=== PATIENT | female | born 1950 | race Two or more races ===

== ENCOUNTER 2022-02-27 18:08 | Emergency (ER) | payer MEDICARE, SELFPAY ==
--- NOTE | ~2022-02-27 | XR_ITS ---
EXAMINATION: XR CHEST CLINICAL INFORMATION: Upper respiratory infection COMPARISON: None TECHNIQUE: Frontal view of the chest was obtained. FINDINGS: No significant acute abnormality is noted involving the heart, lungs, mediastinum, bony thorax or soft tissues. Patient status post median sternotomy. Calcification present in the right supraspinatus tendon. Mild degenerative changes in the spine. XR/XR chest 1V IMPRESSION: No acute intrathoracic disease. Calcific tendinitis right shoulder.
[2022-02-27 18:21] VITALS: BP 144/72; PULSE 90; O2SAT 97
--- NOTE | 2022-02-27 18:40 | ED.GENADULT ---
HPI - General Adult General Chief complaint: Upper Respiratory Symptoms Stated complaint: FLU LIKE SX,FLU @ [facility] PER EMS Time Seen by Provider: 02/27/22 18:15 Related Data Allergies Allergy/AdvReac Type Severity Reaction Status Date / Time No Known Allergies Allergy Verified 02/27/22 18:47 [facility] Social History Social History Advance Directives: No Physical Exam ED Vital Signs: BMI result Body Mass Index 33.4 Course Reevaluation(s) Reevaluation #1: RME 71 year old female hx of CAD present with bloody diarrhea, dry cough, malaise, fatigue, weakness, subjective fevers and chills X2 days. Family members at home flu + . Denies chest pain, shortness of breath, headache, vision changes, dizziness. PE w/ gobal weakness, rest of exam benign Plan: flu/covid/rsv Time: 18:43 Reevaluation #2: I did a rapid medical exam on this patient I was not the primary provider, patient was evaluated by provider by Idalmis Duncan PHOTOVOLTAIC INSTALLATION TECHNICIAN on 02/27/22, please refer to that providers full chart Medications Administered Discontinued Medications Generic Name Dose Route Start Last Admin Trade Name Freq PRN Reason Stop Dose Admin Sodium Chloride 1,000 mls @ 999 mls/hr 02/27/22 21:00 02/27/22 23:35 Ns IVCONT 02/27/22 22:00 Infused .Q1H1M [facility]PER Infusion Ibuprofen 600 mg 02/27/22 20:52 02/27/22 21:11 Ibuprofen 600 Mg Tablet PO 02/27/22 20:53 600 mg ONCE ONE Administration Medical Decision Making Lab Data 02/27/22 19:59 02/27/22 19:59 Labs: Lab Results 02/27/22 02/27/22 02/27/22 Range/Units 18:45 19:59 19:59 WBC 4.2 L (4.8-10.8) X10*3/uL RBC 4.19 L (4.20-5.50) X10*6/uL Hgb 13.5 (12.0-16.0) g/dl Hct 38.9 (37.0-47.0) % MCV 92.8 (80.0-98.0) fL MCH 32.2 (27.0-33.0) pg MCHC 34.7 (31.0-35.0) g/dl RDW 11.8 (11.0-16.0) % Plt Count 105 L (160-400) X10*3/uL MPV 11.7 (9.4-12.3) fL Immature Gran % (Auto) 0.2 (0.0-0.4) % Neut % (Auto) 60.5 (45-73) % Lymph % (Auto) 24.6 (20-40) % [place] % (Auto) 14.5 H (2-11) % Eos % (Auto) 0.0 (0-4) % Baso % (Auto) 0.2 (0-2) % Lymph # (Auto) 1.0 L (1.2-4.9) X10*3/uL [place] # (Auto) 0.6 (0.1-1.2) X10*3/uL Eos # (Auto) 0.0 (0.0-0.4) X10*3/uL Baso # (Auto) 0.0 (0.0-0.2) X10*3/uL Abs Immat Gran (auto) 0.01 (0.00-0.03) X10*3/uL Absolute Neuts (auto) 2.5 (2.0-8.3) x10*3/uL Absolute Nucleated RBC 0.000 (0.0-0.012) X10*3/uL Nucleated RBC % (auto) 0.0 (0.0-0.2) /100WBC Sodium 133 L (135-145) mmol/L Potassium 3.7 (3.3-5.1) mmol/L Chloride 97 (96-108) mmol/L Carbon Dioxide 24 (22-29) mmol/L Anion Gap 16 (12-20) BUN 23 H (9-16) mg/dL Creatinine 0.88 (0.5-1.4) mg/dL Estim Creat Clear Calc 48.1 Estimated GFR > 60 Random Glucose 101 (60-115) mg/dL Calcium 8.8 (8.4-10.2) mg/dL Total Bilirubin 0.5 (0.0-1.0) mg/dL AST 64 H (5-31) U/L ALT 47 H (0-31) U/L Alkaline Phosphatase 59 (39-117) U/L Total Protein 6.4 L (6.5-8.0) g/dL Albumin 3.8 (3.5-5.0) g/dL Influenza Type A (PCR) POSITIVE A (Negative) Influenza Type B (PCR) NEGATIVE (Negative) RSV RNA Qual (PCR) NEGATIVE (Negative) SARS-CoV-2 RNA (RT-PCR) NEGATIVE (Negative) Discharge Plan Discharge Clinical Impression: Influenza, Acute dehydration Patient Disposition: Home, Self-Care Instructions: Dehydration (ED), Influenza (ED) Additional Instructions: You were evaluated for upper respiratory symptoms. You tested positive for influenza A. We gave you a IV fluid for dehydration. Please drink fluids. Take Tylenol 650 mg every 6 hours to help reduce pain and fevers. Follow-up with primary care physician this week. Thank you for choosing this emergency department for evaluation. Please follow-up with primary care physician as needed. Return to the emergency department for any new, concerning, or worsening symptoms. Interventions: ED Discharge Assessment Last Done: 02/27/22 23:43 Discharge Date/Time: 02/27/22 23:45
[2022-02-27 18:41] VITALS: BP 138/71; PULSE 86; RESP 18; TEMP 37.8; O2SAT 96; BMI 33.4
--- NOTE | 2022-02-27 18:57 | ED_ITS ---
HPI - URI/Sore Throat General Chief Complaint: Upper Respiratory Symptoms Stated Complaint: FLU LIKE SX,FLU @ [facility] PER EMS Time Seen by Provider: 02/27/22 18:15 Source: patient Mode of arrival: ambulatory Limitations: language barrier History of Present Illness HPI Narrative: 71-year-old female presents with flu-like symptoms, cough, nasal congestion, diarrhea, myalgia and has had positive influenza contacts. Patient does not report any chest pain, shortness of breath, abdominal distention, vomiting, dizz iness or weakness. She has not taken any medication [id number] to help alleviate her symptoms. MD elicited complaint: fever, cough and nasal congestion Onset (ago): day(s) (2) Consistency: constant and progressively worsening Severity: moderate Pain scale (0-10): 5 Description of mucous: clear and watery Able to tolerate fluids by mouth: Yes Exacerbating factors: exertion Relieving factors: rest Context: sick contacts Associated symptoms: fever, chills, myalgias, headache, nasal congestion, cough and diarrhea Treatments prior to arrival: none Related Data Allergies Allergy/AdvReac Type Severity Reaction Status Date / Time No Known Allergies Allergy Verified 02/27/22 18:47 Review of Systems Review of Systems: Constitutional: positive Fever, positive Chills, positive fatigue, positive Malaise ENT/Mouth: No sore throat, positive runny nose Eyes: No Discharge Cardiovascular: No Chest Pain, No SOB Respiratory: Positive Cough, No Sputum, No Wheezing, No Smoke Exposure, No Dyspnea Gastrointestinal: No Nausea, No Vomiting, positive Diarrhea Genitourinary: no irregular bleeding, No Dysuria, No Urinary Frequency, No Hematuria, No Urinary Incontinence, No Urgency, No Flank Pain, Musculoskeletal: positive Myalgia Skin: No rash Neuro: No Headache Yes all other systems are reviewed and are negative [facility] Past Medical History Attestation statement: The following information was validated with the patient. Source: old records reviewed Social History Social History Advance Directives: No Advance Directives Information Provided: No Physical Exam Vital Signs: Vital Signs: Last Vital Signs Temp 99.8 F 02/27/22 22:42 Pulse 77 02/27/22 22:42 Resp 18 02/27/22 18:41 BP 142/61 H 02/27/22 22:42 Pulse Ox 93 11/28/22 22:42 O2 Del Method 02/27/22 22:42 BMI result Body Mass Index 33.4 Appearance: Alert. Oriented X3. Appears fatigued. Eyes: Pupils equal, round and reactive to light. ENT: Pharynx normal. Neck: Normal inspection. Neck supple. CVS: Normal heart rate and rhythm. Pulses normal. Respiratory: No respiratory distress. Breath sounds normal. Abdomen: Soft and nontender. Skin: Skin warm and dry. Normal skin color. Normal skin turgor. Extremities: No lower extremity edema. Gait well-balanced well coordinated Neuro: No motor deficit. No sensory deficit. Cranial nerves 2-12 intact Course Course Course Narrative: 71-year-old female presents with flu-like symptoms. Has had multiple influenza contacts. Patient's labs were drawn while patient was in the emergency department waiting room, tested positive for influenza A. 20:50 BUN elevated at 23. No prior value for baseline. Indicative of mild dehydration, will order 1 L normal saline. Patient patient family verbalized understanding of supportive measures for influenza. Verbalized understanding of signs symptoms indicating need for emergent intervention. deliverer pharmacy utilized for all correspondence. Google translate utilized for discharge instructions. Medications Administered Discontinued Medications Generic Name Dose Route Start Last Admin Trade Name Freq PRN Reason Stop Dose Admin Sodium Chloride 1,000 mls @ 999 mls/hr 02/27/22 21:00 02/27/22 23:35 Ns IVCONT 02/27/22 22:00 Infused .Q1H1M [facility] Infusion Ibuprofen 600 mg 02/27/22 20:52 02/27/22 21:11 Ibuprofen 600 Mg Tablet PO 02/27/22 20:53 600 mg ONCE ONE Administration MDM - URI/Sore Throat Differential Diagnosis Differential diagnosis: Likely upper respiratory infection, viral infection, influenza and pharyngitis Medical Records Attestation: I reviewed the patient's medical records. Lab Data Attestation: I reviewed the patient's lab results. Result diagrams: 02/27/22 19:59 02/27/22 19:59 Labs: Lab Results 02/27/22 02/27/22 02/27/22 Range/Units 18:45 19:59 19:59 WBC 4.2 L (4.8-10.8) X10*3/uL RBC 4.19 L (4.20-5.50) X10*6/uL Hgb 13.5 (12.0-16.0) g/dl Hct 38.9 (37.0-47.0) % MCV 92.8 (80.0-98.0) fL MCH 32.2 (27.0-33.0) pg MCHC 34.7 (31.0-35.0) g/dl RDW 11.8 (11.0-16.0) % Plt Count 105 L (160-400) X10*3/uL MPV 11.7 (9.4-12.3) fL Immature Gran % (Auto) 0.2 (0.0-0.4) % Neut % (Auto) 60.5 (45-73) % Lymph % (Auto) 24.6 (20-40) % [place] % (Auto) 14.5 H (2-11) % Eos % (Auto) 0.0 (0-4) % Baso % (Auto) 0.2 (0-2) % Lymph # (Auto) 1.0 L (1.2-4.9) X10*3/uL [place] # (Auto) 0.6 (0.1-1.2) X10*3/uL Eos # (Auto) 0.0 (0.0-0.4) X10*3/uL Baso # (Auto) 0.0 (0.0-0.2) X10*3/uL Abs Immat Gran (auto) 0.01 (0.00-0.03) X10*3/uL Absolute Neuts (auto) 2.5 (2.0-8.3) x10*3/uL Absolute Nucleated RBC 0.000 (0.0-0.012) X10*3/uL Nucleated RBC % (auto) 0.0 (0.0-0.2) /100WBC Sodium 133 L (135-145) mmol/L Potassium 3.7 (3.3-5.1) mmol/L Chloride 97 (96-108) mmol/L Carbon Dioxide 24 (22-29) mmol/L Anion Gap 16 (12-20) BUN 23 H (9-16) mg/dL Creatinine 0.88 (0.5-1.4) mg/dL Estim Creat Clear Calc 48.1 Estimated GFR > 60 Random Glucose 101 (60-115) mg/dL Calcium 8.8 (8.4-10.2) mg/dL Total Bilirubin 0.5 (0.0-1.0) mg/dL AST 64 H (5-31) U/L ALT 47 H (0-31) U/L Alkaline Phosphatase 59 (39-117) U/L Total Protein 6.4 L (6.5-8.0) g/dL Albumin 3.8 (3.5-5.0) g/dL Influenza Type A (PCR) POSITIVE A (Negative) Influenza Type B (PCR) NEGATIVE (Negative) RSV RNA Qual (PCR) NEGATIVE (Negative) SARS-CoV-2 RNA (RT-PCR) NEGATIVE (Negative) Imaging Data Chest x-ray: Attestation: I personally reviewed and interpreted this imaging study as follows: Radiologist's impression: EXAMINATION: XR CHEST CLINICAL INFORMATION: Upper respiratory infection COMPARISON: None TECHNIQUE: Frontal view of the chest was obtained. FINDINGS: No significant acute abnormality is noted involving the heart, lungs, mediastinum, bony thorax or soft tissues. Patient status post median sternotomy. Calcification present in the right supraspinatus tendon. Mild degenerative changes in the spine. XR/XR chest 1V IMPRESSION: No acute intrathoracic disease. Calcific tendinitis right shoulder. Discharge Plan Discharge Clinical Impression: Influenza, Acute dehydration Patient Disposition: Home, Self-Care Instructions: Dehydration (ED), Influenza (ED) Additional Instructions: You were evaluated for upper respiratory symptoms. You tested positive for influenza A. We gave you a IV fluid for dehydration. Please drink fluids. Take Tylenol 650 mg every 6 hours to help reduce pain and fevers. Follow-up with primary care physician this week. Thank you for choosing this emergency department for evaluation. Please follow-up with primary care physician as needed. Return to the emergency department for any new, concerning, or worsening symptoms. Interventions: ED Discharge Assessment Last Done: 02/27/22 23:43 Discharge Date/Time: 02/27/22 23:45
[2022-02-27 19:36] LABS: Influenza A PCR POSITIVE (Negative); Influenza B PCR NEGATIVE (Negative); Resp Syncy Virus RNA Qual PCR NEGATIVE (Negative); SARS COV2 PCR INHOUSE NEGATIVE (Negative)
[2022-02-27 20:05] LABS: Basophils Percent Auto 0.2 % (0-2); PLT CLUMP 1; Red Cell Distribution Width 11.8 % (11.0-16.0); SCAN SMEAR FLAG 1
[2022-02-27 20:07] LABS: Hematocrit 38.9 % (37.0-47.0); Hemoglobin 13.5 g/dl (12.0-16.0); Imm Gran Abs Auto 0.01 X10*3/uL (0.00-0.03); Imm Gran Pct Auto 0.2 % (0.0-0.4); Lymphocytes Percent Auto 24.6 % (20-40); Mean Corpuscular HGB Conc 34.7 g/dl (31.0-35.0); Mean Corpuscular Hemoglobin 32.2 pg (27.0-33.0); Mean Corpuscular Volume 92.8 fL (80.0-98.0); Mean Platelet Volume 11.7 fL (9.4-12.3); Monocytes Absolute Auto 0.6 X10*3/uL (0.1-1.2); Monocytes Percent Auto 14.5 % (2-11); Neutrophils Absolute Auto 2.5 x10*3/uL (2.0-8.3); Neutrophils Percent Auto 60.5 % (45-73); Red Blood Count 4.19 X10*6/uL (4.20-5.50)
[2022-02-27 20:16] LABS: MANUAL DIFF FLAG NO; Platelet Count 105 X10*3/uL (160-400); White Blood Count 4.2 X10*3/uL (4.8-10.8)
[2022-02-27 20:26] LABS: Alanine Aminotransferase 47 U/L (0-31); Albumin Level 3.8 g/dL (3.5-5.0); Alkaline Phosphatase 59 U/L (39-117); Anion Gap 16 (12-20); Aspartate Amino Transferase 64 U/L (5-31); Bilirubin Total 0.5 mg/dL (0.0-1.0); Blood Urea Nitrogen 23 mg/dL (9-16); Calcium 8.8 mg/dL (8.4-10.2); Carbon Dioxide 24 mmol/L (22-29); Chloride 97 mmol/L (96-108); Creatinine Clr Calc Pharmacy 48.1; Estimated Glomerular Filt Rate > 60; Glucose Random 101 mg/dL (60-115); Potassium 3.7 mmol/L (3.3-5.1); Sodium 133 mmol/L (135-145); Total Protein 6.4 g/dL (6.5-8.0)
[2022-02-27] MEDS: Ibuprofen 600 MG TABLET PO (21:11)
[2022-02-27] MEDS: 0.9 % Sodium Chloride 1,000 ML 999 ML IVCONT (21:12)
[2022-02-27 22:42] VITALS: BP 142/61; PULSE 77; TEMP 37.7; O2SAT 93
== END 2022-02-27 23:45 | disposition home or self-care (01) ==
PROVIDERS: Physician Assistant; Emergency Provider Internal Medicine
DX: J11.1 Influenza due to unidentified influenza virus with other respiratory manifestations (principal); R50.9 Fever, unspecified; E86.0 Dehydration; Z20.822 Contact with and (suspected) exposure to COVID-19
CPT/HCPCS: 0241U; 36415; 71045; 80053; 85025; 96360; 96361; 99284

== ENCOUNTER 2022-03-01 23:59 | Emergency (ER) | payer OTHER, SELFPAY ==
--- NOTE | 2022-03-02 | ECG_ITS ---
Test Reason : Dizziness Blood Pressure : / mmHG Vent. Rate : 072 BPM Atrial Rate : 072 BPM P-R Int : 138 ms QRS Dur : 112 ms QT Int : 440 ms P-R-T Axes : 068 041 043 degrees QTc Int : 481 ms Normal sinus rhythm Incomplete right bundle branch block Nonspecific T wave abnormality Prolonged QT Abnormal ECG No previous ECGs available Referred By: Generic ED Physician Electronically Signed By:Jimmy Decker
[2022-03-02 00:03] VITALS: BP 145/76; PULSE 88; O2SAT 97
[2022-03-02 00:28] VITALS: BP 115/53; PULSE 74; RESP 16; TEMP 36.6; O2SAT 95; BMI 50.0
[2022-03-02 01:47] LABS: MANUAL DIFF FLAG NO
[2022-03-02 01:50] LABS: Eosinophils Absolute Auto 0.1 X10*3/uL (0.0-0.4); Eosinophils Percent Auto 1.2 % (0-4); Hematocrit 36.2 % (37.0-47.0); Hemoglobin 12.3 g/dl (12.0-16.0); Imm Gran Abs Auto 0.01 X10*3/uL (0.00-0.03); Imm Gran Pct Auto 0.2 % (0.0-0.4); Lymphocytes Absolute Auto 1.5 X10*3/uL (1.2-4.9); Lymphocytes Percent Auto 36.7 % (20-40); Mean Corpuscular Hemoglobin 31.4 pg (27.0-33.0); Mean Corpuscular Volume 92.3 fL (80.0-98.0); Mean Platelet Volume 11.4 fL (9.4-12.3); Monocytes Absolute Auto 0.5 X10*3/uL (0.1-1.2); Monocytes Percent Auto 11.4 % (2-11); Neutrophils Percent Auto 50.5 % (45-73); Platelet Count 115 X10*3/uL (160-400); Red Blood Count 3.92 X10*6/uL (4.20-5.50)
[2022-03-02 02:06] LABS: Alanine Aminotransferase 29 U/L (0-31); Albumin Level 3.2 g/dL (3.5-5.0); Alkaline Phosphatase 48 U/L (39-117); Anion Gap 10 (12-20); Aspartate Amino Transferase 49 U/L (5-31); Bilirubin Total 0.6 mg/dL (0.0-1.0); Blood Urea Nitrogen 13 mg/dL (9-16); Calcium 8.5 mg/dL (8.4-10.2); Carbon Dioxide 29 mmol/L (22-29); Chloride 103 mmol/L (96-108); Creatinine Clr Calc Pharmacy 46.3; Estimated Glomerular Filt Rate 60; Glucose Random 158 mg/dL (60-115); Potassium 4.1 mmol/L (3.3-5.1); Sodium 138 mmol/L (135-145); Total Protein 5.5 g/dL (6.5-8.0)
[2022-03-02 02:24] LABS: Influenza A PCR POSITIVE (Negative); Influenza B PCR NEGATIVE (Negative); Resp Syncy Virus RNA Qual PCR NEGATIVE (Negative); SARS COV2 PCR INHOUSE NEGATIVE (Negative)
[2022-03-02 02:50] VITALS: BP 121/69; PULSE 66; RESP 18; TEMP 36.7; O2SAT 96
--- NOTE | 2022-03-02 03:39 | ED_ITS ---
HPI - General Adult General Chief complaint: Dizziness Stated complaint: flu like symptoms Time Seen by Provider: 03/02/22 03:00 Source: patient, family and personnel analyst Mode of arrival: ambulatory History of Present Illness HPI narrative: 71-year-old female who is flu positive who is brought in by her family for decreased appetite and poor oral intake that has contributed to her dizziness and family states that she is not responding. Patient denies any discomfort at this time but does state her appetite is lower when she has no complaints. Related Data Allergies Allergy/AdvReac Type Severity Reaction Status Date / Time No Known Allergies Allergy Verified 02/27/22 18:47 Review of Systems Review of Systems: Pertinent positives and negatives as stated in HPI 10 point review of systems otherwise negative. [facility] Past Medical History Source: nursing notes reviewed Social History Social History Advance Directives: No Physical Exam ED Vital Signs: Vital Signs - 24 hr 03/02/22 00:28 03/02/22 02:50 Temperature 97.9 F 98.0 F Pulse Rate 74 66 Respiratory Rate 16 18 Blood Pressure 115/53 L 121/69 Pulse Oximetry 95 96 Oxygen Delivery Method Room Air Room Air BMI result Body Mass Index 50.0 VITAL SIGNS: Reviewed. GENERAL: Well developed, well nourished, in no acute distress. HEAD: Normocephalic/atraumatic EYES: PERRLA, EOMI EARS: Ext canals without abnormality, TMs non-bulging and non-erythematous NOSE: Nares patent bilateral OROPHARYNX: no oral lesions noted, posterior pharynx clear and non-erythematous without noted tonsillar enlargement/erythema/exudates NECK: Supple, no adenopathy LUNGS: Normal breath sounds. No adventitious sounds or accessory muscle use. SpO2<95> CARDIOVASCULAR: Regular rate and rhythm without noted murmurs ABDOMEN: Soft, non-tender, non-distended with bowel sounds. MUSCULOSKELETAL: No tenderness, deformities, or effusions noted on gross inspection. EXTREMITIES: No cyanosis, clubbing or edema. SKIN: Inspection of the skin reveals no rashes NEUROLOGIC: Alert and oriented x 4. Strength and sensation to light touch were grossly intact x 4, cranial nerves 2-12 are grossly intact. Course Course Course Narrative: 71-year-old female with history and clinical presentation after review of all investigations consistent with viral syndrome and noted to be influenza A positive. Patient has been having symptoms for greater than 72 hours and will not be started on any Tamiflu. All results discussed with the patient and her family at bedside and she is otherwise hemodynamically stable for discharge with strict instructions to increase the amount of water intake that her appetite will gradually recover. Medical Decision Making Lab Data Result diagrams: 03/02/22 01:42 03/02/22 01:42 Labs: Lab Results 03/02/22 03/02/22 03/02/22 Range/Units 01:42 01:42 01:42 WBC 4.0 L (4.8-10.8) X10*3/uL RBC 3.92 L (4.20-5.50) X10*6/uL Hgb 12.3 (12.0-16.0) g/dl Hct 36.2 L (37.0-47.0) % MCV 92.3 (80.0-98.0) fL MCH 31.4 (27.0-33.0) pg MCHC 34.0 (31.0-35.0) g/dl RDW 12.0 (11.0-16.0) % Plt Count 115 L (160-400) X10*3/uL MPV 11.4 (9.4-12.3) fL Immature Gran % (Auto) 0.2 (0.0-0.4) % Neut % (Auto) 50.5 (45-73) % Lymph % (Auto) 36.7 (20-40) % [place] % (Auto) 11.4 H (2-11) % Eos % (Auto) 1.2 (0-4) % Baso % (Auto) 0.0 (0-2) % Lymph # (Auto) 1.5 (1.2-4.9) X10*3/uL [place] # (Auto) 0.5 (0.1-1.2) X10*3/uL Eos # (Auto) 0.1 (0.0-0.4) X10*3/uL Baso # (Auto) 0.0 (0.0-0.2) X10*3/uL Abs Immat Gran (auto) 0.01 (0.00-0.03) X10*3/uL Absolute Neuts (auto) 2.0 (2.0-8.3) x10*3/uL Absolute Nucleated RBC 0.000 (0.0-0.012) X10*3/uL Nucleated RBC % (auto) 0.0 (0.0-0.2) /100WBC Sodium 138 (135-145) mmol/L Potassium 4.1 (3.3-5.1) mmol/L Chloride 103 (96-108) mmol/L Carbon Dioxide 29 (22-29) mmol/L Anion Gap 10 L (12-20) BUN 13 (9-16) mg/dL Creatinine 0.92 (0.5-1.4) mg/dL Estim Creat Clear Calc 46.3 Estimated GFR 60 Random Glucose 158 H (60-115) mg/dL Calcium 8.5 (8.4-10.2) mg/dL Total Bilirubin 0.6 (0.0-1.0) mg/dL AST 49 H (5-31) U/L ALT 29 (0-31) U/L Alkaline Phosphatase 48 (39-117) U/L Total Protein 5.5 L (6.5-8.0) g/dL Albumin 3.2 L (3.5-5.0) g/dL Influenza Type A (PCR) POSITIVE A (Negative) Influenza Type B (PCR) NEGATIVE (Negative) RSV RNA Qual (PCR) NEGATIVE (Negative) SARS-CoV-2 RNA (RT-PCR) NEGATIVE (Negative) Discharge Plan Discharge Clinical Impression: Viral syndrome, Influenza A Patient Disposition: Home, Self-Care Instructions: Influenza (ED), Viral Syndrome (ED), Droplet Precautions (ED), Flu Shot (Vaccine) for Adults (ED) Additional Instructions: 1. Reanudar todos los medicamentos caseros. 2. Aumente la cantidad de agua que est? consumiendo. Y use Tylenol/ibuprofeno de venta jayro seg?n sea necesario para reid de scott, reid corporales, temperaturas superiores a 100.4. 3. Realice un seguimiento con anderson proveedor de atenci?n primaria en los pr?ximos 1 a 2 d?as para kasie reevaluaci?n adicional del manejo ambulatorio. Regrese a la maryann de emergencias si los s?ntomas empeoran. Print Language: [place]
== END 2022-03-02 03:56 | disposition home or self-care (01) ==
PROVIDERS: Emergency Provider Student in an Organized Health Care Education/Training Program
DX: B34.9 Viral infection, unspecified (principal); J11.1 Influenza due to unidentified influenza virus with other respiratory manifestations; R42 Dizziness and giddiness; Z20.822 Contact with and (suspected) exposure to COVID-19
CPT/HCPCS: 0241U; 36415; 80053; 85025; 93005; 99283; 99284